=== PATIENT | female | born 1975 ===

== ENCOUNTER → 2018-12-11 18:51 | Outpatient (REF) | payer BC, SELFPAY | LOC: LAB 18:51 | PROVIDERS: Visit Provider Physician Assistant Medical | DX: D48.5 Neoplasm of uncertain behavior of skin (principal) | CPT/HCPCS: 88304 ==

== ENCOUNTER → 2018-12-29 18:46 | Outpatient (REF) | payer BC, SELFPAY ==
[2018-12-31 15:36] LABS: Estradiol 659 pg/mL
[2019-01-01 15:30] LABS: Progesterone 1.1 ng/mL
== END ==
LOC: LAB 18:46
PROVIDERS: Visit Provider Physician Assistant Medical
DX: N95.9 Unspecified menopausal and perimenopausal disorder (principal)
CPT/HCPCS: 36415; 82670; 84144